=== PATIENT | male | born 1955 | race Caucasian/White ===

== ENCOUNTER 2018-01-02 21:19 | Inpatient (IN) | payer MEDICARE, OTHER ==
[~2018-01-02] VITALS: Ht 188 cm; Wt 93.9 kg
[2018-01-02 21:52] LABS: Basophils # (auto) 0.1 uL; Basophils % (auto) 0.5 % (0.0-2.0); Eosinophils # (auto) 0.1 uL; Eosinophils % (auto) 0.6 % (0.0-7.0); Hematocrit 40.1 % (41.0-53.0); Hemoglobin 14.2 g/dL (13.5-17.5); Lymphocytes % (auto) 20.6 % (10.0-50.0); Mean Corpuscular Hemoglobin 31.5 pg (28.0-32.0); Mean Corpuscular Hgb Conc. 35.4 g/dL (32.0-36.0); Mean Corpuscular Volume 89.1 fL (80.0-100.0); Monocytes # (auto) 0.9 uL; Monocytes % (auto) 8.9 % (0.0-12.0); Neutrophils # (auto) 6.8 uL; Neutrophils % (auto) 69.4 % (37.0-80.0); Platelet Count (auto) 270 10^3/uL (140-450); Red Cell Distribution Width 13.7 % (11.8-14.3); White Blood Cell 9.8 10^3/uL (4.4-10.8)
[2018-01-02 22:07] LABS: Acetaminophen < 2.0 ug/mL (10-30); Salicylate 3.2 mg/dL (2.8-20.0)
[2018-01-02 22:12] LABS: Alanine Aminotransferase 97 U/L (16-61); Albumin 4.1 g/dL (3.4-5.0); Alkaline Phosphatase 63 U/L (45-117); Anion Gap 16 (5-15); Aspartate Aminotransferase 143 U/L (15-37); BUN/Creatinine Ratio 25.4; Bilirubin, Total 1.2 mg/dL (0.2-1.0); Blood Alcohol < 3.0 mg/dL (0-5); Blood Urea Nitrogen 54 mg/dL (7-18); Carbon Dioxide 16 mmol/L (21-32); Chloride 107 mmol/L (98-107); GFR African American 41 mL/min; GFR Non-African American 34 mL/min; Glucose 225 mg/dL (74-106); Magnesium 2.8 mg/dL (1.6-2.6); Potassium 4.1 mmol/L (3.5-5.1); Sodium 139 mmol/L (136-145); Total Protein 8.2 g/dL (6.4-8.2)
[2018-01-03] MEDS ORDERED: HALOPERIDOL LACTATE 5 MG/ML INJ VIAL IM ONE (02:00)
[2018-01-03] MEDS ORDERED: LORazepam 2MG/ML-1ML VIAL IM ONE ×2 (02:00→12:00)
[2018-01-03] MEDS ORDERED: diphenhdrAMINE HCL 50 MG/1 ML VL IV ONE (02:00)
[2018-01-03] MEDS ORDERED: ACETAMINOPHEN 500 MG TAB PO PRN (03:30)
[2018-01-03] MEDS ORDERED: DEXTROSE (50%) 50ML SYRG IV PRN (03:30)
[2018-01-03] MEDS ORDERED: LORazepam 2MG/ML-1ML VIAL IV PRN (03:30)
[2018-01-03] MEDS ORDERED: HYDROcodone-ACET 5/325MG TAB PO PRN (03:30)
[2018-01-03 05:00] VITALS: BP 147/67
[2018-01-03] MEDS: ACCU-CHEK COMFORT CURVE STRIP VI SCH ×3 (06:36→17:13)
[2018-01-03] MEDS: InsuLIN REG 1unit/0.01ml Soln (100units/ml) SC SCH ×3 (06:36→17:14)
[2018-01-03 07:55] LABS: Basophils # (auto) 0.1 uL; Basophils % (auto) 0.7 % (0.0-2.0); Eosinophils # (auto) 0.3 uL; Eosinophils % (auto) 2.7 % (0.0-7.0); Hematocrit 39.6 % (41.0-53.0); Hemoglobin 13.5 g/dL (13.5-17.5); Lymphocytes # (auto) 3.9 uL; Lymphocytes % (auto) 38.3 % (10.0-50.0); Mean Corpuscular Hemoglobin 30.3 pg (28.0-32.0); Mean Corpuscular Volume 89.1 fL (80.0-100.0); Monocytes # (auto) 0.7 uL; Monocytes % (auto) 7.1 % (0.0-12.0); Neutrophils # (auto) 5.2 uL; Neutrophils % (auto) 51.2 % (37.0-80.0); Platelet Count (auto) 258 10^3/uL (140-450); Red Blood Cells 4.45 10^6/uL (4.5-5.90); Red Cell Distribution Width 13.4 % (11.8-14.3); White Blood Cell 10.1 10^3/uL (4.4-10.8)
[2018-01-03 08:38] LABS: Albumin 3.8 g/dL (3.4-5.0); BUN/Creatinine Ratio 34.6; Bilirubin, Total 1.1 mg/dL (0.2-1.0); Calcium 8.8 mg/dL (8.5-10.1); Potassium 3.7 mmol/L (3.5-5.1); Total Protein 7.7 g/dL (6.4-8.2)
[2018-01-03] MEDS: clonazePAM 0.5 MG TAB PO SCH (10:00)
[2018-01-03] MEDS: ENALAPRIL MALEATE 2.5 MG TAB PO SCH (10:00)
[2018-01-03] MEDS: SODIUM CHLORIDE 0.9% 1,000 ML IV SCH ×2 (11:45→18:10)
[2018-01-03] MEDS ORDERED: LACTULOSE 20Gm/30ML SOLN PO ONE (13:30)
[2018-01-03] MEDS ORDERED: SODIUM CHLORIDE 0.9% 1,000 ML IV ONE (16:00)
[2018-01-03 16:14] LABS: Alcohol, Urine < 3.0 mg/dL (0-5); Amphetamine Screen, Urine NEGATIVE (NEGATIVE); Barbiturate Scree,Urine NEGATIVE (NEGATIVE); Benzodiazephine Screen, Urine NEGATIVE (NEGATIVE); Cannabinoid Screen, Urine POSITIVE (NEGATIVE); Cocaine Screen, Urine NEGATIVE (NEGATIVE); Opiate Scree,Urine NEGATIVE (NEGATIVE); Phencyclidine Screen, Urine NEGATIVE (NEGATIVE)
[2018-01-03 16:22] LABS: Urine Bacteria NONE SEEN /hpf (None Seen); Urine Blood Negative /uL (Negative); Urine Specific Gravity 1.023 (1.001-1.035); Urine WBC 2 /hpf (0 - 3)
[2018-01-03] MEDS: metFORMIN HYDROCHLORIDE 500 MG TAB PO SCH (17:14)
[2018-01-04] MEDS: clonazePAM 0.5 MG TAB PO SCH ×3 (00:23→21:48)
[2018-01-04] MEDS: ACCU-CHEK COMFORT CURVE STRIP VI SCH ×5 (00:24→22:14)
[2018-01-04] MEDS: InsuLIN REG 1unit/0.01ml Soln (100units/ml) SC SCH ×5 (00:24→22:14)
[2018-01-04] MEDS: SODIUM CHLORIDE 0.9% 1,000 ML IV SCH ×4 (01:05→21:47)
[2018-01-04 04:08] VITALS: BP 106/68
[2018-01-04] MEDS: metFORMIN HYDROCHLORIDE 500 MG TAB PO SCH ×2 (07:13→18:09)
[2018-01-04 08:15] LABS: Basophils # (auto) 0 uL; Basophils % (auto) 0.5 % (0.0-2.0); Eosinophils # (auto) 0.2 uL; Eosinophils % (auto) 2.6 % (0.0-7.0); Hematocrit 38.8 % (41.0-53.0); Hemoglobin 13.1 g/dL (13.5-17.5); Lymphocytes # (auto) 2.8 uL; Lymphocytes % (auto) 36.9 % (10.0-50.0); Mean Corpuscular Hemoglobin 30.1 pg (28.0-32.0); Mean Corpuscular Hgb Conc. 33.7 g/dL (32.0-36.0); Mean Corpuscular Volume 89.5 fL (80.0-100.0); Monocytes # (auto) 0.7 uL; Monocytes % (auto) 8.9 % (0.0-12.0); Neutrophils # (auto) 3.9 uL; Neutrophils % (auto) 51.1 % (37.0-80.0); Nucleated Red Blood Cells % 0.1 %; Platelet Count (auto) 236 10^3/uL (140-450); Red Blood Cells 4.33 10^6/uL (4.5-5.90); Red Cell Distribution Width 13.4 % (11.8-14.3); White Blood Cell 7.7 10^3/uL (4.4-10.8)
[2018-01-04 08:47] VITALS: BP 133/63
[2018-01-04 10:30] LABS: Hepatitis B Surface Antibody Negative
[2018-01-04 10:43] LABS: Albumin 3.3 g/dL (3.4-5.0); BUN/Creatinine Ratio 22.6; Bilirubin, Total 0.6 mg/dL (0.2-1.0); Calcium 8.4 mg/dL (8.5-10.1); Total Protein 7.1 g/dL (6.4-8.2)
[2018-01-04 10:56] LABS: Hepatitis A Total Antibody Negative
[2018-01-04] MEDS: ENALAPRIL MALEATE 2.5 MG TAB PO SCH (11:39)
[2018-01-04 13:08] LABS: Hepatitis B Core Total AB Negative; Hepatitis B Surface Antigen Negative (Negative); Hepatitis C Antibody Negative (Negative)
[2018-01-04 13:15] VITALS: BP 124/68
[2018-01-04 16:52] VITALS: BP 115/74
[2018-01-04 22:00] VITALS: BP 108/71
[2018-01-05] MEDS: SODIUM CHLORIDE 0.9% 1,000 ML IV SCH (03:45)
[2018-01-05 05:00] VITALS: BP 126/76
[2018-01-05 05:50] LABS: Basophils # (auto) 0 uL; Basophils % (auto) 0.5 % (0.0-2.0); Eosinophils # (auto) 0.1 uL; Hematocrit 37.7 % (41.0-53.0); Hemoglobin 13.1 g/dL (13.5-17.5); Lymphocytes # (auto) 2.8 uL; Lymphocytes % (auto) 38.1 % (10.0-50.0); Mean Corpuscular Hemoglobin 30.9 pg (28.0-32.0); Mean Corpuscular Hgb Conc. 34.9 g/dL (32.0-36.0); Mean Corpuscular Volume 88.5 fL (80.0-100.0); Monocytes # (auto) 0.6 uL; Monocytes % (auto) 7.9 % (0.0-12.0); Neutrophils # (auto) 3.8 uL; Neutrophils % (auto) 51.5 % (37.0-80.0); Nucleated Red Blood Cells % 0.1 %; Platelet Count (auto) 244 10^3/uL (140-450); Red Blood Cells 4.26 10^6/uL (4.5-5.90); Red Cell Distribution Width 13.2 % (11.8-14.3); White Blood Cell 7.4 10^3/uL (4.4-10.8)
[2018-01-05 06:08] LABS: Albumin 3.4 g/dL (3.4-5.0); BUN/Creatinine Ratio 13.8; Bilirubin, Total 0.7 mg/dL (0.2-1.0); Calcium 8.6 mg/dL (8.5-10.1); Potassium 3.9 mmol/L (3.5-5.1); Total Protein 7.1 g/dL (6.4-8.2)
[2018-01-05] MEDS: metFORMIN HYDROCHLORIDE 500 MG TAB PO SCH (06:45)
[2018-01-05] MEDS: InsuLIN REG 1unit/0.01ml Soln (100units/ml) SC SCH (06:46)
[2018-01-05] MEDS: ACCU-CHEK COMFORT CURVE STRIP VI SCH (06:46)
== END 2018-01-05 09:00 | disposition home health service (06) | DRG 557 ==
LOC: ER 21:19 → OVERFLOW 21:20 → WEST WING 01-03 04:49
PROVIDERS: ADMIT Nurse Practitioner Family; ATTEND Family Medicine
DX: M62.82 Rhabdomyolysis (principal); G93.41 Metabolic encephalopathy; E86.0 Dehydration; E11.65 Type 2 diabetes mellitus with hyperglycemia; T67.5XXA Heat exhaustion, unspecified, initial encounter; I10 Essential (primary) hypertension; F12.10 Cannabis abuse, uncomplicated; K75.9 Inflammatory liver disease, unspecified; F31.9 Bipolar disorder, unspecified; R45.1 Restlessness and agitation; K76.0 Fatty (change of) liver, not elsewhere classified; X30.XXXA Exposure to excessive natural heat, initial encounter; Y93.89 Activity, other specified; Y92.89 Other specified places as the place of occurrence of the external cause; Y99.8 Other external cause status
CPT/HCPCS: 36415; 70450; 71045; 76705; 80053; 80307; 80320; 80329; 81001; 82140; 82550; 82962; 83036; 83605; 83735; 84443; 84484; 85025; 86704; 86706; 86708; 86803; 87040; 87086; 87340; 93005; 96372; 96374; J1815